=== PATIENT | female | born 1950 | race Caucasian/White ===

== ENCOUNTER 2019-05-08 04:49 | Inpatient (IN) | payer BC, MEDICARE ==
[2019-05-08] MEDS ORDERED: Ondansetron 4 MG Tab.DIS PO ONE (05:24)
--- NOTE | 2019-05-08 05:31 | EDM.PDOC ---
ED HPI GENERAL MEDICAL PROBLEM - General Chief Complaint: Abdominal Pain Stated Complaint: STOMACH PAINS Time Seen by Provider: 05/08/19 05:20 Source of Information: Reports: Patient, RN History Limitations: Reports: No Limitations - History of Present Illness INITIAL COMMENTS - FREE TEXT/NARRATIVE: 68 yo female here with vomiting for the past 2 days with abdominal distention( distention not new). No fever. No hematemesis. No pHx of abdominal surgeries. Here with her . Onset: Sudden Onset Date: 05/06/19 Duration: Day(s): (2+), Constant Location: Reports: Abdomen Quality: Reports: Other (distention/tenderness) Severity: Moderate Improves with: Reports: None Worsens with: Reports: Other (time) Context: Reports: Other (see HPI) Associated Symptoms: Reports: Nausea/Vomiting. 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 (see below) (none) Abdominal Pain Score (Numeric/FACES): 10 - Related Data Allergies Allergy/AdvReac Type Severity Reaction Status Date / Time propoxyphene [From Darvon] Allergy Blurred Verified 05/08/19 05:09 Vision Home Meds: Home Meds NK [No Known Home Meds] 05/08/19 [History] Social & Family History - Tobacco Use Smoking Status *Q: Never Smoker - Caffeine Use Caffeine Use: Reports: None - Recreational Drug Use Recreational Drug Use: No ED ROS GENERAL - Review of Systems Review Of Systems: See Below Constitutional: Reports: No Symptoms HEENT: Reports: No Symptoms Respiratory: Reports: No Symptoms Cardiovascular: Reports: No Symptoms Endocrine: Reports: No Symptoms GI/Abdominal: Reports: Abdominal Pain, Nausea, Vomiting. Denies: Black Stool, Bloody Stool, Constipation, Diarrhea, Distension, Flatus, Hematemesis, Hematochezia, Melena : Reports: No Symptoms Musculoskeletal: Reports: No Symptoms Skin: Reports: No Symptoms Neurological: Reports: No Symptoms ED EXAM, GI/ABD - Physical Exam Exam: See Below Exam Limited By: No Limitations General Appearance: Alert, WD/WN, No Apparent Distress Eyes: Bilateral: Normal Appearance Ears: Normal External Exam, Normal Canal, Hearing Grossly Normal, Normal TMs Nose: Normal Inspection, No Blood Throat/Mouth: Normal Inspection, Normal Lips, Normal Oropharynx, Normal Voice, No Airway Compromise Head: Atraumatic, Normocephalic Neck: Normal Inspection Respiratory/Chest: No Respiratory Distress, Lungs Clear, Normal Breath Sounds, No Accessory Muscle Use Cardiovascular: Regular Rate, Rhythm, No Edema GI/Abdominal Exam: Normal Bowel Sounds, Distended, Tender. No: Soft, Non-Tender , No Distention Back Exam: Normal Inspection. No: CVA Tenderness (R), CVA Tenderness (L) Extremities: Normal Inspection, Normal Range of Motion, Non-Tender, No Pedal Edema Neurological: Alert, Oriented, CN II-XII Intact, Normal Cognition, No Motor/ Sensory Deficits Psychiatric: Normal Affect, Normal Mood Skin Exam: Warm, Dry, Intact, Normal Color, No Rash Course - Vital Signs Text/Narrative:: Dr. Jimenez here and is aware, 0655h Last Recorded V/S: Last Vital Signs Temp 37.2 C 05/08/19 05:14 Pulse 62 05/08/19 05:14 Resp 14 05/08/19 05:14 BP 118/69 05/08/19 05:14 Pulse Ox 98 05/08/19 05:14 - Orders/Labs/Meds Orders: Active Orders 24 hr Category Date Time Status Abdomen 2V AP Flat Upright [CR] Stat Exams 05/08/19 05:28 Taken Abdomen Pelvis w Cont [CT] Stat Exams 05/08/19 05:59 Taken Lactated Ringers [Ringers, Lactated] 1,000 ml Med 05/08/19 06:43 Active IV BOLUS Sodium Chloride 0.9% [Saline Flush] Med 05/08/19 06:02 Active 10 ml FLUSH ASDIRECTED PRN Saline Lock Insert [OM.PC] Routine Oth 05/08/19 06:02 Ordered Medication Orders Lactated Ringer's (Ringers, Lactated) 1,000 mls @ 1,000 mls/hr IV BOLUS ONE Stop: 05/08/19 07:42 Last Admin: 05/08/19 06:53 Dose: 1,000 mls/hr Sodium Chloride (Saline Flush) 10 ml FLUSH ASDIRECTED PRN PRN Reason: Keep Vein Open Labs: Laboratory Tests 05/08/19 05/08/19 05/08/19 Range/Units 06:05 06:05 06:27 WBC 32.5 H* (4.5-11.0) K/uL RBC 3.77 (3.30-5.50) M/uL Hgb 11.7 L (12.0-15.0) g/dL Hct 34.8 L (36.0-48.0) % MCV 92 (80-98) fL MCH 31 (27-31) pg MCHC 34 (32-36) % Plt Count 317 (150-400) K/uL Add Manual Diff Yes Neutrophils % (Manual) 79 H (36-66) % Band Neutrophils % 10 (5-11) % Lymphocytes % (Manual) 2 L (24-44) % Monocytes % (Manual) 9 H (2-6) % Sodium 135 L (140-148) mmol/L Potassium 3.9 (3.6-5.2) mmol/L Chloride 99 L (100-108) mmol/L Carbon Dioxide 24 (21-32) mmol/L Anion Gap 15.9 H (5.0-14.0) mmol/L BUN 31 H (7-18) mg/dL Creatinine 1.3 H (0.6-1.0) mg/dL Est Cr Clr Drug Dosing 35.76 mL/min Estimated GFR (MDRD) 41 L (>60) Glucose 136 H (74-106) mg/dL Calcium 9.7 (8.5-10.1) mg/dL Total Bilirubin 0.7 (0.2-1.0) mg/dL AST 36 (15-37) U/L ALT 14 (12-78) U/L Alkaline Phosphatase 117 H (46-116) U/L Total Protein 8.2 (6.4-8.2) g/dL Albumin 3.1 L (3.4-5.0) g/dL Globulin 5.1 H (2.3-3.5) g/dL Albumin/Globulin Ratio 0.6 L (1.2-2.2) Lipase 75 (73-393) U/L Urine Color Yellow (YELLOW) Urine Appearance Cloudy A (CLEAR) Urine pH 5.5 (5.0-8.0) Ur Specific Lincoln >= 1.030 (1.008-1.030) Urine Protein 100 H (NEGATIVE) mg/dL Urine Glucose (UA) Negative (NEGATIVE) mg/dL Urine Ketones Trace H (NEGATIVE) mg/dL Urine Occult Blood Trace-intact H (NEGATIVE) Urine Nitrite Negative (NEGATIVE) Urine Bilirubin Small H (NEGATIVE) Urine Urobilinogen 0.2 (0.2-1.0) EU/dL Ur Leukocyte Esterase Small H (NEGATIVE) Urine RBC 0-5 (0-5) Urine WBC 5-10 H (0-5) Ur Epithelial Cells Moderate Amorphous Sediment Not seen Urine Bacteria Many Urine Mucus Moderate Urine Other Meds: Medications Generic Name Dose Route Start Last Admin Trade Name Freq PRN Reason Stop Dose Admin Lactated Ringer's 1,000 mls @ 1,000 mls/hr 05/08/19 06:43 05/08/19 06:53 Ringers, Lactated IV 05/08/19 07:42 1,000 mls/hr BOLUS ONE Administration Sodium Chloride 10 ml 05/08/19 06:02 Saline Flush FLUSH ASDIRECTED PRN Keep Vein Open Discontinued Medications Generic Name Dose Route Start Last Admin Trade Name Freq PRN Reason Stop Dose Admin Iopamidol 100 ml 05/08/19 06:25 05/08/19 06:34 Isovue-300 (61%) IV 05/08/19 06:26 100 ml . DIRECTED STA Administration Ondansetron HCl 4 mg 05/08/19 05:24 05/08/19 05:32 Zofran Odt PO 05/08/19 05:25 4 mg ONETIME ONE Administration - Radiology Interpretation Free Text/Narrative:: Flat/upright abdominal X-rays-no obstruction CT abd/pelvis with IV contrast-large ovarian tumor CT Results Date: 05/08/19 Departure - Departure Time of Disposition: 07:02 Disposition: Admitted As Inpatient 66 Condition: Fair Clinical Impression: Mild dehydration Nausea and vomiting Qualifiers: Vomiting type: unspecified Vomiting Intractability: non-intractable Qualified Code(s): R11.2 - Nausea with vomiting, unspecified Benign ovarian tumor Qualifiers: Laterality: unspecified laterality Qualified Code(s): D27.9 - Benign neoplasm of unspecified ovary - Discharge Information *PRESCRIPTION DRUG MONITORING PROGRAM REVIEWED*: No *COPY OF PRESCRIPTION DRUG MONITORING REPORT IN PATIENT SOCO: No Referrals: Brayan Hawkins Sr, MD [Primary Care Provider] - Forms: ED Department Discharge Sepsis Event Note - Evaluation Sepsis Screening Result: No Definite Risk - Focused Exam Vital Signs: Vital Signs Temp Pulse Resp BP Pulse Ox 05/08/19 05:14 37.2 C 62 14 118/69 98 Date Exam was Performed: 05/08/19 Time Exam was Performed: 07:01 - My Orders Last 24 Hours: My Active Orders 05/08/19 05:28 Abdomen 2V AP Flat Upright [CR] Stat 05/08/19 05:59 Abdomen Pelvis w Cont [CT] Stat 05/08/19 06:02 Sodium Chloride 0.9% [Saline Flush] 10 ml FLUSH ASDIRECTED PRN Saline Lock Insert [OM.PC] Routine 05/08/19 06:43 Lactated Ringers [Ringers, Lactated] 1,000 ml IV BOLUS - Assessment/Plan Last 24 Hours: My Active Orders 05/08/19 05:28 Abdomen 2V AP Flat Upright [CR] Stat 05/08/19 05:59 Abdomen Pelvis w Cont [CT] Stat 05/08/19 06:02 Sodium Chloride 0.9% [Saline Flush] 10 ml FLUSH ASDIRECTED PRN Saline Lock Insert [OM.PC] Routine 05/08/19 06:43 Lactated Ringers [Ringers, Lactated] 1,000 ml IV BOLUS
[2019-05-08] MEDS ORDERED: Sodium Chloride 0.9% 10 ML Syringe FLUSH PRN (06:02)
[2019-05-08] MEDS ORDERED: Iopamidol 612 MG/ML 100 ML Bottle IV STA (06:25)
[2019-05-08] MEDS ORDERED: Lactated Ringers 1,000 ML IV ONE (06:43)
--- NOTE | 2019-05-08 07:22 | CRLCT ---
INDICATION: Abdominal distention and pain. TECHNIQUE: CT abdomen and pelvis acquired with 100 cc Isovue-300 IV contrast. Coronal and sagittal reconstructions. COMPARISON: None. FINDINGS: Enlarged and lobulated uterus containing areas of coarse calcification likely representing fibroids. There is a large soft tissue density mass superior to the uterus measuring approximately 13.3 x 22.2 x 15.1 cm (series 3, image 90 and series 5, image 50). The mass contains more focal areas of nodular hyperenhancement, for example on the right anteriorly (series 3, image 84) and on the left laterally (image 94). The right ovary appears to be separate from the mass and is normal in appearance. The left ovary has an abnormal swirled appearance (series 3, image 105). The mass could represent a large pedunculated subserosal fibroid, versus ovarian origin. Small amount of free fluid throughout the abdomen and pelvis. Haziness of the mesentery in the right upper abdomen is of uncertain significance and could represent edema. No definite omental caking. The liver, gallbladder, spleen, pancreas, and adrenal glands are negative. Left renal cortical scarring. Small left renal cyst. Symmetric nephrograms. No hydronephrosis. The bladder is unremarkable. No bowel dilation. Colonic diverticulosis. Submucosal fat deposition throughout the ascending and transverse colon which can be seen with chronic inflammation. The appendix is not definitely identified. Hepatic and portal veins are patent. No lymphadenopathy. Small right pleural effusion. Bibasilar atelectasis. 4 mm noncalcified pulmonary nodule in the lateral left lower lobe (series 3, image 13). Small pneumatoceles versus emphysema in the lung bases. Mitral annulus calcifications. IMPRESSION: 1. Large soft tissue density mass measuring 13.3 x 22.2 x 15.1 cm located superior to the uterus with areas of suspicious nodular hyperenhancement. Findings are worrisome for malignancy of gynecologic origin. Additional less likely consideration would be a large pedunculated subserosal fibroid. Recommend gynecologic consult. Findings discussed with Derick Officer at 7:18am on 05/08/2019. 2. Enlarged lobulated uterus with coarse calcifications is likely due to fibroids, however malignancy is not excluded. 3. Abnormal swirled appearance of the left ovary. Torsion is not excluded. Consider further evaluation with pelvic ultrasound. 4. Small right pleural effusion. 5. 4 mm noncalcified pulmonary nodule in the left lower lobe. Please note that all CT scans at this facility use dose modulation, iterative reconstruction, and/or weight-based dosing when appropriate to reduce radiation dose to as low as reasonably achievable. Dictated by Rina Rodriguez MD @ May 08 2019 7:00AM Signed by Dr. Rina Rodriguez @ May 08 2019 7:19AM
[2019-05-08] MEDS ORDERED: Dextrose 5%-Lactated Ringers 1,000 ML IV SCH (08:45)
[2019-05-08] MEDS ORDERED: HYDROmorphone/Normal Saline 15 MG/30 ML PCA IV PRN (09:00)
[2019-05-08] MEDS ORDERED: Naloxone 0.4 MG/ML SDV IV PRN (09:00)
--- NOTE | 2019-05-08 10:21 | CR ---
Abdomen 2V AP Flat Upright CLINICAL HISTORY: Abdominal distention FINDINGS: There are scattered air-filled loops of small bowel in a nonacute pattern. No free air is identified. There is some patchy airspace disease in both lower lungs There is a possibility of bowel gas in the pelvis which is suspect for mass. There are calcifications in the low mid pelvis which appear to be uterine in origin IMPRESSION: Nonacute intestinal gas pattern Large masslike density in the low abdomen and pelvis. Correlate with CT scan Bibasal airspace disease may be patchy atelectasis
[2019-05-08] MEDS ORDERED: fentaNYL 250 MCG/5 ML SDV ONE ×2 (10:24→14:07)
[2019-05-08] MEDS ORDERED: Rocuronium 50 MG/5 ML Vial ONE (10:24)
[2019-05-08] MEDS ORDERED: Neostigmine Methylsulfate 1 MG/ML 5 ML Syringe ONE (10:24)
[2019-05-08] MEDS ORDERED: Ondansetron 4 MG/2 ML SDV ONE (10:24)
[2019-05-08] MEDS ORDERED: Propofol 200 MG/20 ML SDV ONE (10:24)
[2019-05-08] MEDS ORDERED: Dexamethasone 4 MG/ML SDV ONE (10:24)
[2019-05-08] MEDS ORDERED: Glycopyrrolate 0.2 MG/ML 5 ML MDV ONE (10:24)
[2019-05-08] MEDS ORDERED: Succinylcholine 200 MG/10 ML MDV ONE (10:24)
[2019-05-08] MEDS ORDERED: Lidocaine 1% with EPINEPHrine 1:100,000 50 ML MDV ONE (11:06)
[2019-05-08] MEDS ORDERED: Bupivacaine 0.5% 50 ML MDV ONE (11:06)
[2019-05-08] MEDS ORDERED: Meropenem 500 MG SDV ONE (11:06)
[2019-05-08] MEDS ORDERED: cefOXitin 2 GM in Sodium Chloride 0.9% 50 ML IV ONE (13:00)
[2019-05-08] MEDS ORDERED: Ketamine 500 MG/5 ML MDV IV SCH (13:00)
[2019-05-08] MEDS ORDERED: Ketamine 50 MG in Sodium Chloride 0.9% 49.5 ML IV SCH (13:00)
[2019-05-08] MEDS ORDERED: Ropivacaine 34 ML, dexAMETHasone 8 MG, EPINEPHrine 0.4 MG, Sodium Chloride 0.9% 43.6 ML NERVRT SCH ×4 (13:00)
[2019-05-08] MEDS ORDERED: Lactated Ringers 1,000 ML ONE (14:02)
[2019-05-08] MEDS ORDERED: fentaNYL 100 MCG/2 ML SDV ONE (14:59)
[2019-05-08] MEDS ORDERED: Cyclobenzaprine 10 MG Tab PO PRN (17:02)
[2019-05-08] MEDS ORDERED: hydrOXYzine HCL 100 MG/2 ML SDV IM PRN (17:02)
[2019-05-08] MEDS: Ondansetron 4 MG/2 ML SDV IVPUSH PRN (17:11)
[2019-05-08] MEDS: Dextrose 5%-Lactated Ringers 1,000 ML IV SCH ×2 (17:14→23:46)
[2019-05-08] MEDS: Pantoprazole 40 MG Vial IV SCH (18:08)
[2019-05-08] MEDS: cefOXitin 2 GM in Sodium Chloride 0.9% 50 ML IV SCH ×2 (18:09→23:45)
[2019-05-09] MEDS: Dextrose 5%-Lactated Ringers 1,000 ML IV SCH ×2 (05:34→14:53)
[2019-05-09] MEDS: cefOXitin 2 GM in Sodium Chloride 0.9% 50 ML IV SCH ×3 (05:34→17:37)
--- NOTE | 2019-05-09 09:18 | PN ---
DATE OF SERVICE: 05/09/2019 SUBJECTIVE: Selina is postoperative day #1. Pain is controlled. Vital signs have been stable. Oral intake 240. Urine output via Mcclellan catheter 955. AHRMAN drains put out 90 and 365 of a light red drainage. No other concerns. She had several questions about surgery and these were answered by Janes Jimenez MD. OBJECTIVE: GENERAL: Selina Roque is a 68-year-old female. She is alert and orientated. VITAL SIGNS: TPR 97.7, 81, 16, blood pressure 110/56, O2 is 92% on 2 L. HEENT: Negative. NECK: Supple. HEART: Regular rate and rhythm. LUNGS: Clear. ABDOMEN: Dressings dry and intact. HARMAN drains as above. EXTREMITIES: SCDs are on and there is no peripheral edema. ASSESSMENT: 1. Exploratory laparotomy with left salpingo-oophorectomy involving large mass, 6 pounds 1 ounce. 2. Ovarian staging procedure. 3. Total abdominal hysterectomy, bilateral salpingo oophorectomy. 4. Omentectomy. 5. Biopsy of multiple implants, large and small bowel. Biopsies of right and left cul-de- sac, gutter, bladder peritoneum, and diaphragmatic peritoneum. 6. Excision of small bowel, omentum. 7. Appendectomy. 8. Placement of Interceed mesh and peritoneal lymph node sampling for large 6-pound 1- ounce mass left ovary, frozen section. Date of surgery: 05/08/2019. Surgeon: Janes Jimenez MD. 9. Decrease IV to 100 mL per hour. 10.Continue sips of clear liquids. 11.We will evaluate p.r.n. or in a.m. Rina Carrasco PA-C /[id number]
[2019-05-09] MEDS: Pantoprazole 40 MG Vial IV SCH (17:32)
[2019-05-10] MEDS: Dextrose 5%-Lactated Ringers 1,000 ML IV SCH ×3 (01:32→18:04)
[2019-05-10] MEDS ORDERED: Acetaminophen 325 MG Tab PO SCH (09:00)
[2019-05-10] MEDS: Pantoprazole 40 MG Tab.CR PO SCH (09:45)
[2019-05-10] MEDS: Ibuprofen 600 MG Tab PO SCH ×3 (09:45→20:44)
[2019-05-10] MEDS: Bisacodyl 5 MG Tab PO SCH ×2 (09:45→20:46)
[2019-05-10] MEDS: Acetaminophen 500 MG Tab PO SCH ×3 (09:45→20:45)
[2019-05-10] MEDS: Docusate Sodium 100 MG Cap PO SCH ×2 (09:45→20:44)
--- NOTE | 2019-05-10 09:52 | PN ---
DATE OF SERVICE: 05/10/2019 SUBJECTIVE: Selina is postoperative day #2. 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 Staff is requesting oral pain medication. Oral intake 1140. Urine output via Mcclellan catheter is 605. HARMAN drain 1 put out 410 and HARMAN flat drain in incision put out 10. REVIEW OF SYSTEMS: Remainder of review of systems negative for any pertinent positives and negatives. OBJECTIVE: GENERAL: Selina Roque is a 68-year-old female, alert and orientated. VITAL SIGNS: TPR is 98.3, 71, 16, blood pressure 128/60. HEENT: Negative. NECK: Supple. HEART: Regular rate and rhythm. LUNGS: Clear. ABDOMEN: Dressings dry and intact. Abdominal binder is on. HARMAN drains as above. EXTREMITIES: Without peripheral edema. GENITOURINARY: Mcclellan catheter intact. ASSESSMENT: 1. Exploratory laparotomy with left salpingo-oophorectomy involving large mass, 6 pounds 1- ounce. 2. Ovarian staging procedure. 3. Total abdominal hysterectomy, bilateral salpingo-oophorectomy. 4. Omentectomy. 5. Biopsy of multiple implants, large and small bowel biopsies of right and left cul-de- sac gutter, small bladder peritoneum, and diaphragmatic peritoneum. 6. Excision of small bowel, omentum. 7. Appendectomy. 8. Placement of Interceed mesh and peritoneal lymph node sampling for a postoperative diagnosis of 6 pounds 1-ounce left ovarian mass, frozen section. 9. Date of surgery: 05/08/2019. Surgeon: Janes Jimenez MD. PLAN: 1. Discontinue Mcclellan catheter. 2. Dressing off, may shower. 3. Tylenol 1000 mg p.o. scheduled every 6 hours. 4. Dulcolax 10 mg p.o. b.i.d. 5. Colace 100 mg p.o. b.i.d. 6. Discontinue WEIGHT CONTROL LECTURER and continuous pulse ox. 7. Dilaudid 2 mg 1 to 2 every 4 hours p.r.n. pain. 8. Ibuprofen 600 mg scheduled q.6 hours. 9. Remove HARMAN drain #1. 10.Good pulmonary toilet. 11.We will evaluate p.r.n. or in a.m. Rina Carrasco PA-C /[id number]
--- NOTE | 2019-05-10 12:52 | PN ---
DATE OF SERVICE: 05/10/2019 ADDENDUM: Selina Roque is a 68-year-old female whose hospitalization is extended due to pain management and decreased urine output. Her urine output on postoperative day #1 was 955, postoperative day #2 was 605. Labs will be ordered in a.. Rina Carrasco PA-C /[id number]
[2019-05-11] MEDS: HYDROmorphone 2 MG Tab PO PRN ×3 (01:53→13:37)
[2019-05-11] MEDS: Ibuprofen 600 MG Tab PO SCH ×4 (02:48→20:24)
[2019-05-11] MEDS: Acetaminophen 500 MG Tab PO SCH ×4 (02:49→20:23)
[2019-05-11] MEDS ORDERED: Dextrose 5%-Lactated Ringers 1,000 ML IV SCH (07:02)
[2019-05-11] MEDS ORDERED: LORazepam 0.5 MG Tab PO PRN (07:06)
[2019-05-11] MEDS: Pantoprazole 40 MG Tab.CR PO SCH (07:44)
--- NOTE | 2019-05-11 07:50 | PN ---
DATE OF SERVICE: 05/11/2019 SUBJECTIVE: Selina has had scheduled Tylenol and ibuprofen. They did give some Dilaudid. She reports she still has pain, but staff states that she is resting comfortably. Selina thinks that she did have a bowel movement. Albumin today was 1.8, hemoglobin 10.8, magnesium is 1.7. Up, ambulating, using her incentive spirometer. REVIEW OF SYSTEMS: Remainder of review of systems negative for any pertinent positives and negatives. OBJECTIVE: GENERAL: Selina Roque is a 68-year-old female. VITAL SIGNS: TPR is 97.2, 76, 16, blood pressure 157/75. HEENT: Negative. NECK: Supple. HEART: Regular rate and rhythm. LUNGS: Clear. ABDOMEN: Slightly distended but soft. Aquacel dressing is on. Abdominal binder is on. Midline HARMAN drain has put out drops. EXTREMITIES: Without peripheral edema. ASSESSMENT: 1. Exploratory laparotomy with left salpingo-oophorectomy involving large mass, 6 pounds 1- ounce. 2. Ovarian staging procedure. 3. Total abdominal hysterectomy, bilateral salpingo-oophorectomy. 4. Omentectomy. 5. Biopsy, multiple implants, large and small bowel biopsies of the right and left cul-de- sac gutters, small bowel peritoneum, and diaphragmatic peritoneum. 6. Excision of small bowel omentum. 7. Appendectomy. 8. Placement of Interceed mesh and peritoneal lymph node sampling. POSTOPERATIVE DIAGNOSES: 1. 6 pounds 1-ounce left ovarian mass, frozen section. 2. Date of surgery: 05/08/2019. Janes Jimenez MD, surgeon. PLAN: 1. Regular diet. 2. Decrease IV to 40 mL per hour. 3. Magnesium 2 g IV x6 hours x48 hours for magnesium of 1.7. 4. Albumin 25 g IV daily x3 days. 5. Ativan 0.5 mg q.8 hours p.r.n. anxiety. 6. Discontinue Aquacel dressing. The patient to shower, then replace new Aquacel dressing. 7. Good pulmonary toilet. 8. We will evaluate p.r.n. or in a.m. Rina Carrasco PA-C /[id number]
[2019-05-11] MEDS: Bisacodyl 5 MG Tab PO SCH ×2 (08:10→20:24)
[2019-05-11] MEDS: Docusate Sodium 100 MG Cap PO SCH ×2 (08:11→20:23)
[2019-05-11] MEDS: Magnesium Sulfate/Water 2 GM in Premix Bag 1 BAG IV SCH ×3 (13:26→22:25)
[2019-05-12] MEDS: Ondansetron 4 MG/2 ML SDV IVPUSH PRN (02:28)
[2019-05-12] MEDS: Acetaminophen 500 MG Tab PO SCH ×4 (02:34→21:04)
[2019-05-12] MEDS: Ibuprofen 600 MG Tab PO SCH ×4 (02:34→21:04)
[2019-05-12] MEDS: Magnesium Sulfate/Water 2 GM in Premix Bag 1 BAG IV SCH ×4 (04:23→21:06)
[2019-05-12] MEDS: Pantoprazole 40 MG Tab.CR PO SCH (07:48)
--- NOTE | 2019-05-12 10:11 | PN ---
DATE OF SERVICE: 05/12/2019 SUBJECTIVE: Selina has been up ambulating. Vital signs stable. Had a large bowel movement. Oral intake 800. Urine output 900. HARMAN drain has put out 0 mL. The pain has been controlled. REVIEW OF SYSTEMS: Remainder of review of systems negative for any pertinent positives and negatives. OBJECTIVE: GENERAL: Selina Roque is a 68-year-old female. VITAL SIGNS: TPR is 96.8, 72, 16. Blood pressure 124/61. HEENT: Negative. NECK: Supple. HEART: Regular rate and rhythm. LUNGS: Clear. ABDOMEN: Dressings dry and intact. Abdominal binder is on. EXTREMITIES: Without peripheral edema. ASSESSMENT: 1. Exploratory laparotomy with left salpingo-oophorectomy involving large mass, 6 pounds 1 ounce. 2. Ovarian staging procedure. 3. Total abdominal hysterectomy, bilateral salpingo-oophorectomy. 4. Omentectomy. 5. Biopsy, multiple implants, large and small bowel biopsies of the right and left cul-de- sac gutters, small bowel peritoneum, and diaphragmatic hernia. 6. Excision of small bowel omentum. 7. Appendectomy. 8. Placement of Interceed mesh and peritoneal lymph node sampling. POSTOPERATIVE DIAGNOSES: 1. 6-pound 1-ounce left ovarian mass, frozen section. Date of surgery: 05/08/2019. Janes Jimenez MD is surgeon. 2. Consult with Discharge Planning regarding home health care. Dietary consult regarding the patient's request for high-protein diet. Discontinue Colace. Discontinue Dulcolax. Good pulmonary toilet. We will evaluate p.r.n. or in a.m. PLAN: Discharge in a.m. Rina Carrasco PA-C /[id number]
[2019-05-13] MEDS: Acetaminophen 500 MG Tab PO SCH ×4 (02:40→21:57)
[2019-05-13] MEDS: Ibuprofen 600 MG Tab PO SCH ×4 (02:40→21:57)
[2019-05-13] MEDS: Magnesium Sulfate/Water 2 GM in Premix Bag 1 BAG IV SCH (04:09)
[2019-05-13] MEDS: Pantoprazole 40 MG Tab.CR PO SCH (07:29)
[2019-05-14] MEDS: Ibuprofen 600 MG Tab PO SCH (04:09)
[2019-05-14] MEDS: Acetaminophen 500 MG Tab PO SCH ×2 (04:09→10:20)
[2019-05-14] MEDS ORDERED: Ondansetron 4 MG Tab.DIS PO ONE (06:45)
[2019-05-14] MEDS: Pantoprazole 40 MG Tab.CR PO SCH (06:47)
[2019-05-14] MEDS ORDERED: Celecoxib 200 MG Cap PO ONE (09:00)
--- NOTE | 2019-05-14 11:18 | DISCH ---
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 SECONDARY DIAGNOSES: 1. Multiple other intraabdominal biopsies consistent with benign status. 2. Small bowel diverticulum. OPERATIVE PROCEDURE: This was done on 05/08, exploratory laparotomy with: 1. Left salpingo-oophorectomy including a large mass. 2. Ovarian tumor staging. PROCEDURES: 1. ANIKA-BSO. 2. Omentectomy. 3. Multiple biopsies of implants and large and small bowel. 4. Peritoneal biopsies of right and left colic gutters, urinary bladder, and right diaphragm. 5. Excision of small bowel diverticulum. 6. Appendectomy. 7. Placement of Interceed mesh to limit incurrent adhesion formation. SUMMARY: This is a 68-year-old female presenting with nausea and vomiting and an obvious large abdominal mass. CT scan was consistent with a large solid ovarian mass, which was confirmed. At the time of exploration, the mass was removed and a frozen section was suggestive of a fibroma. The patient had multiple peritoneal type implants suggestive of metastatic disease, these were all turned out to be benign. Postoperatively, the patient has done well with resumption of oral intake and adequate bowel function. She narcotics, she will be discharged home on Celebrex 200 mg p.o. daily #14, Tylenol 1 g p.o. q.i.d. p.r.n., and Zofran 4 mg ODT q.4 hours p.r.n. #30. She will be following up with Rina Carrasco at [facility] on 05/18/2019. The patient has been instructed not to lift more than 10 pounds for 1 month postoperatively. She will have an Aquacel dressing on, which she will be instructed to remove on Wednesday Morning.
--- NOTE | 2019-05-14 14:24 | PN ---
DATE OF SERVICE: 05/13/2019 The patient has been afebrile with stable vital signs. Still little bit inadequate pain control but appears to be getting better. We are going to increase the activity and pain control today. Her pathology came back benign fibroma with all sent operative specimens came showing benign findings. This was reviewed with the patient. We will plan to discharge home tomorrow most likely, and we will have discharge planning assessment whether home care might be needed today. Janes Jimenez MD /[id number]
--- NOTE | 2019-05-17 14:03 | OR ---
DATE OF PROCEDURE: 05/08/2019 SURGEON: Janes Jimenez MD PREOPERATIVE DIAGNOSIS: Large pelvic mass. POSTOPERATIVE DIAGNOSIS: Large solid mass, left ovary with features suspicious for malignancy. OPERATIVE PROCEDURE: Exploratory laparotomy with: 1. Left salpingo-oophorectomy including large mass. 2. Ovarian tumor staging procedure including: a. Total abdominal hysterectomy with right salpingo-oophorectomy. b. Omentectomy. c. Biopsy of multiple implants in large and small bowel. d. Peritoneal biopsies involving the left and right colic gutter, urinary bladder, and right diaphragm. e. Paraaortic lymph node sampling (35820). 3. Excision of small bowel diverticulum (25939). 4. Appendectomy (30919). 5. Placement of Interceed mesh to limit adhesion formation between pelvic and abdominal wall and underlying viscera (57857). ANESTHESIA: General. PHYSICALLY IMPAIRED TEACHER: Rina Carrasco PA-C, and EVY Pastor2. INDICATIONS FOR PROCEDURE: This is a 68-year-old presenting with worsening abdominal pain and an obvious large lower abdominal and pelvic mass. CT scan showed what appeared to be a large pelvic mass probably emanating from the left ovary. Because of the amount of discomfort, the plan is to proceed with exploratory laparotomy with frozen section. If findings of ovarian malignancy identified or findings suspicious for malignancy, we would then proceed with a staging procedure with the component outlined above and other procedures as indicated per intraoperative inspection. Potential risks of the procedure including bleeding, infection, leaks from various possible GI tract closures, possibility of tumor may not be resectable or it may recur were all reviewed, and the patient wishes to proceed. DETAILS OF PROCEDURE: The patient was taken to the operating room, and after general endotracheal anesthesia was induced, Mcclellan catheter was inserted and the abdomen was prepped and draped. A midline incision which eventually extended from the pubis upward to roughly handsbreadth above the umbilicus was made and carried down through the full-thickness abdominal wall. Upon entering the peritoneal cavity, a large amount of hemorrhagic fluid was identified, 400 mL of this was evacuated and this was sent for cytologic evaluation. Bilateral transversus abdominis plane blocks were then placed. The large mass was emanating from the left ovary and was roughly the size of a small bowling ball. This had some torsion on it resulting in some hemorrhagic necrosis of its base. This was then excised by means of division of the infundibulopelvic ligament and the remaining attachments to the uterus with SNOW pietro. The removed specimen was 6 pounds 1 ounce. 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 The pathology was suspicious this may be malignant, and based on the other intraoperative findings, the overall picture was quite suspicious for malignancy, so we opted at this point to proceed with a staging procedure rather than put the patient through an entirely separate operation if the tumor comes back confirmed to be malignant. Following this, we then proceeded with a total abdominal hysterectomy and right salpingo- oophorectomy. The infundibulopelvic ligament on the right side was divided and round ligaments on both sides were divided. The peritoneal reflection of the bladder on the uterus was reflected downward and the cardinal ligaments were then taken with SNOW pietro as well. The vagina was divided just below the cervix with a SNOW curved black load and specimen was delivered from the field. At this point, the patient was noted to have a fine nodularity scattered in multiple areas in the abdomen. We then proceeded with an omentectomy with SNOW pietro, and the small and large bowel were then explored and multiple implants were then excised either by doing simple excision with a sharp dissection or with pietro as indicated. The patient was noted to have a quite distended small bowel diverticulum in the proximal small bowel and this was excised by means of a SNOW stapler as well. The appendix had 2 nodules on it, 1 near the tip and 1 near its base, and appendectomy was then accomplished with a SNOW stapler as well, which divided both the appendix and the mesoappendix. Peritoneal biopsies from the right and left paracolic gutters, urinary bladder surface, and right diaphragm was then also obtained. At that point, there was no gross remaining tumor present. Peritoneum overlying the distal aorta was incised and the fatty lymphatic tissue over the paraaortic area was then excised as well. All of these were sent separately as specimens, and at that point, no further problems were noted. The abdomen was irrigated with antibiotic-containing saline solution. Single Janes-Morgan drain was then placed through a stab wound in the right mid abdomen, taken down into the pelvis. Interceed mesh was then placed underneath the pelvic area extending up against the abdominal wall, which would displace predominantly the small bowel from those surfaces. The midline fascia was then approximated with #2 Vicryl stitch. Skin and subcutaneous tissue were felt to be at high risk for wound infection and primary closure was then undertaken. We, therefore, packed open for a planned delayed primary closure in 48 hours. The patient was taken to the recovery room in satisfactory condition. Physician education assistant, Rina Carrasco, played an essential role in assisting in this case, helping to position the patient, retract structures as needed, as well as suturing and cutting sutures when indicated. Her presence improved patient safety and decreased operative time. Janes Jimenez MD /[id number]
== END 2019-05-14 12:57 | disposition home or self-care (01) | DRG 743 ==
LOC: JP.ED 04:49 → JP.MS 07:26 → UNDOADMIN 07:26 → UNDODISIN 05-14 12:57
PROVIDERS: ADMIT Surgery; ATTEND Surgery
PROC: 0UT90ZZ Resection of Uterus, Open Approach (ICD-10-PCS; principal; 2019-05-08)
PROC: 0UB20ZZ Excision of Bilateral Ovaries, Open Approach (ICD-10-PCS; 2019-05-08)
PROC: 0UB70ZZ Excision of Bilateral Fallopian Tubes, Open Approach (ICD-10-PCS; 2019-05-08)
PROC: 0DB80ZZ Excision of Small Intestine, Open Approach (ICD-10-PCS; 2019-05-08)
PROC: 0DTJ0ZZ Resection of Appendix, Open Approach (ICD-10-PCS; 2019-05-08)
PROC: 0DBE0ZX Excision of Large Intestine, Open Approach, Diagnostic (ICD-10-PCS; 2019-05-08)
PROC: 0DB80ZX Excision of Small Intestine, Open Approach, Diagnostic (ICD-10-PCS; 2019-05-08)
PROC: 0TBB0ZX Excision of Bladder, Open Approach, Diagnostic (ICD-10-PCS; 2019-05-08)
PROC: 0BBT0ZX Excision of Diaphragm, Open Approach, Diagnostic (ICD-10-PCS; 2019-05-08)
PROC: 0FB Hepatobiliary System and Pancreas, Excision (ICD-10-PCS; 2019-05-08)
PROC: 3E0M05Z Introduction of Adhesion Barrier into Peritoneal Cavity, Open Approach (ICD-10-PCS; 2019-05-08)
DX: D27.1 Benign neoplasm of left ovary (principal); R11.2 Nausea with vomiting, unspecified; D27.9 Benign neoplasm of unspecified ovary; K57.10 Diverticulosis of small intestine without perforation or abscess without bleeding; E86.0 Dehydration; Z88.8 Allergy status to other drugs, medicaments and biological substances
CPT/HCPCS: 36415; 74019 ×2; 74177; 80053; 81001; 83690; 85025; 96360; 99285; A9270; J7120; Q9967; 83735; 84100; 85027; 86304; 88112; 88304; 88305; 88307; 88331; 88342; 94762; 99284; C9113; J0171; J0330; J0694; J1100; J1170; J2185; J2405; J2704; J2710; J2795; J3010; J3475; J3490; J7050; J7121; P9047